=== PATIENT | female | born 1950 | race Caucasian/White ===

== ENCOUNTER → 2017-03-21 | Outpatient (CLI) | payer OTHER | LOC: CIMAGING 14:59 | PROVIDERS: ATTEND Family Medicine | DX: N95.0 Postmenopausal bleeding (principal) | CPT/HCPCS: 76856-PO ==

== ENCOUNTER → 2017-03-22 | Outpatient (CLI) | payer OTHER | LOC: FIMAGING 08:36 | PROVIDERS: ATTEND Family Medicine | DX: Z12.31 Encounter for screening mammogram for malignant neoplasm of breast (principal) | CPT/HCPCS: G0202 ==

== ENCOUNTER 2017-05-10 03:18 | Observation (INO) | payer OTHER ==
[2017-05-10] MEDS ORDERED: NS 1,000 ML IV ONE ×3 (03:23→06:41)
[2017-05-10] MEDS ORDERED: PROMETHAZINE HCL 25 MG/ML INJ IVP ONE (03:23)
--- NOTE | 2017-05-10 03:25 | EDPHY ---
H & P Time Seen by Provider: 05/10/17 03:22 HPI/ROS: Chief Complaint: Nausea vomiting HPI: 66-year-old woman with began having nausea and vomiting after dinner last night. She has had multiple episodes of vomiting since. Denies any pain. Not had any diarrhea or constipation. No fevers or chills. No chest pain or shortness of breath. She has not felt lightheaded. No dizziness. No vision or hearing changes. No hematemesis. No melena or hematochezia. No on else in the family is ill. Has otherwise been in her usual state of health ROS: 10 point Review of Systems is negative except as noted in the HPI. PMH: Osteoporosis, restless leg syndrome Social History: No smoking, occasional alcohol, no recreational drug use Family History: non-contributory Physical Exam: Gen: Awake, Alert, No Distress HEENT: Nose: no rhinorrhea Eyes: PERRLA, EOMI Mouth: Moist mucosa Neck: Supple, no JVD Chest: nontender, lungs clear to auscultation Heart: S1, S2 normal, no murmur Abd: Soft, non-tender, no guarding Back: no CVA tenderness, no midline tenderness Ext: no edema, non-tender Skin: no rash Neuro: CN II-XII intact, Sensation grossly intact, Strength 5/5 in bilateral upper and lower extremities - Medical/Surgical History Hx Asthma: Yes Hx Chronic Respiratory Disease: No Hx Diabetes: No Hx Cardiac Disease: No Hx Renal Disease: No Hx Cirrhosis: No Hx Alcoholism: No Hx HIV/AIDS: No Hx Splenectomy or Spleen Trauma: No - Social History Smoking Status: Former smoker Constitutional: Initial Vital Signs Temperature (C) 35 C L 05/10/17 03:20 Heart Rate 53 L 05/10/17 03:20 Respiratory Rate 18 05/10/17 03:20 Blood Pressure 218/96 H 05/10/17 03:20 O2 Sat (%) 97 05/10/17 03:20 O2 Delivery Mode Room Air Allergies/Adverse Reactions: erythromycin base [Erythromycin Base] Allergy (Severe, Verified 05/10/17 03:54) Vomiting Penicillins Allergy (Severe, Verified 05/10/17 03:54) Hives Sulfa (Sulfonamide Antibiotics) Allergy (Severe, Verified 05/10/17 03:54) Hives doxycycline Allergy (Verified 05/10/17 03:54) Hives Macrolide Antibiotics Allergy (Verified 05/10/17 03:54) Hives Home Medications: Medication Instructions Recorded Calcium/Magnesium/Vit D3 [Calcium 1 each PO BID 03/23/14 500 mg Tablet] Cholecalciferol (Vitamin D3) 2,000 unit PO BID 03/23/14 [Vitamin D3] Escitalopram Oxalate [Lexapro] 20 mg PO DAILY 03/23/14 Herbals/Supplements -Info Only 1 ea PO DAILY 03/23/14 Oxycodone Ir [Oxy Ir 5 mg (RX)] 5 - 10 mg PO Q3 PRN #40 tab 03/31/14 Carbidopa/Levodopa 05/10/17 Flexeril 05/10/17 Levothyroxine 05/10/17 Meloxicam 05/10/17 Valium 05/10/17 Medical Decision Making - Diagnostics EKG Interpretation: ECG time 1:42 p.m., sinus rhythm with a rate of 51, first-degree AV block, left axis deviation, LVH, no acute ST or T-wave changes. Imaging Results: CT head negative for acute abnormality per Dr Alarcon. Imaging: Discussed imaging studies w/ apartment maintenance supervisor Radiologist ED Course/Re-evaluation: Patient improved after IV antiemetics and fluids but still complaining of some mild abdominal discomfort and some persistent nausea patient has not had any further vomiting. CT scan of the brain is negative no acute change in her ECG. Troponin is negative. She has a mild leukocytosis of 16 but I think this is secondary to her multiple episodes of vomiting. Will give her small dose of fentanyl and is more ondansetron with IV hydration and reassess. Pt is improved after further hydration. Hypertension improved after clonidine. Pt has had no headache, chest pain or palpitations. Abdomen is soft and non- tender. Tolerating PO. Pt had another episode of vomiting. Feeling worse. Increasing nausea. Will need admission. Discussed with Dr. Thomason. Will admit to his service. - Data Points Laboratory Results: Laboratory Results 05/10/17 03:15 05/10/17 03:15 05/10/17 05/10/17 05/10/17 03:30 03:15 03:15 WBC 16.66 10^3/uL H 10^3/uL (3.80-9.50) RBC 5.53 10^6/uL H 10^6/uL (4.18-5.33) Hgb 16.4 g/dL H g/dL (12.6-16.3) Hct 48.2 % H % (38.0-47.0) MCV 87.2 fL fL (81.5-99.8) MCH 29.7 pg pg (27.9-34.1) MCHC 34.0 g/dL g/dL (32.4-36.7) RDW 13.7 % % (11.5-15.2) Plt Count 328 10^3/uL 10^3/uL (150-400) MPV 9.5 fL fL (8.7-11.7) Neut % (Auto) 81.5 % H % (39.3-74.2) Lymph % (Auto) 13.1 % L % (15.0-45.0) [place] % (Auto) 3.6 % L % (4.5-13.0) Eos % (Auto) 0.5 % L % (0.6-7.6) Baso % (Auto) 0.5 % % (0.3-1.7) Nucleat RBC Rel Count 0.0 % % (0.0-0.2) Absolute Neuts (auto) 13.55 10^3/uL H 10^3/uL (1.70-6.50) Absolute Lymphs (auto) 2.19 10^3/uL 10^3/uL (1.00-3.00) Absolute Monos (auto) 0.60 10^3/uL 10^3/uL (0.30-0.80) Absolute Eos (auto) 0.09 10^3/uL 10^3/uL (0.03-0.40) Absolute Basos (auto) 0.09 10^3/uL 10^3/uL (0.02-0.10) Absolute Nucleated RBC 0.00 10^3/uL 10^3/uL (0-0.01) Immature Gran % 0.8 % % (0.0-1.1) Immature Gran # 0.14 10^3/uL H 10^3/uL (0.00-0.10) Sodium 146 mEq/L H mEq/L (134-144) Potassium 4.2 mEq/L mEq/L (3.5-5.2) Chloride 106 mEq/L mEq/L (97-110) Carbon Dioxide 15 mEq/l L mEq/l (22-31) Anion Gap 25 mEq/L H mEq/L (8-16) BUN 19 mg/dL mg/dL (7-23) Creatinine 1.2 mg/dL H mg/dL (0.6-1.0) Estimated GFR 45 Glucose 151 mg/dL H mg/dL (70-100) Calcium 10.2 mg/dL mg/dL (8.5-10.4) Troponin I < 0.012 ng/mL ng/mL (0-0.034) Urine Color COLORLESS Urine Appearance CLEAR Urine pH 7.0 (5.0-7.5) Ur Specific [place] 1.008 (1.002-1.030) Urine Protein NEGATIVE (NEGATIVE) Urine Ketones 1+ H (NEGATIVE) Urine Blood 1+ H (NEGATIVE) Urine Nitrate NEGATIVE (NEGATIVE) Urine Bilirubin NEGATIVE (NEGATIVE) Urine Urobilinogen NEGATIVE EU EU (0.2-1.0) Ur Leukocyte Esterase NEGATIVE (NEGATIVE) Urine RBC 5-10 /hpf H /hpf (0-3) Urine WBC 1-3 /hpf /hpf (0-3) Ur Epithelial Cells TRACE /lpf /lpf (NONE-1+) Urine Bacteria TRACE /hpf H /hpf (NONE SEEN) Urine Glucose 1+ H (NEGATIVE) Medications Given: Discontinued Medications Clonidine (Catapres) 0.1 mg PO EDNOW ONE Stop: 05/10/17 05:09 Last Admin: 05/10/17 05:14 Dose: 0.1 mg Fentanyl (Sublimaze) 25 mcg IVP EDNOW ONE Stop: 05/10/17 04:35 Last Admin: 05/10/17 04:40 Dose: 25 mcg Fentanyl (Sublimaze) 25 mcg IVP EDNOW ONE Stop: 05/10/17 04:39 Last Admin: 05/10/17 04:39 Dose: Not Given Sodium Chloride (Ns) 1,000 mls @ 0 mls/hr IV ONCE ONE PRN Reason: Wide Open Stop: 05/10/17 03:24 Last Admin: 05/10/17 03:42 Dose: 1,000 mls Sodium Chloride (Ns) 1,000 mls @ 0 mls/hr IV ONCE ONE PRN Reason: Wide Open Stop: 05/10/17 04:11 Last Admin: 05/10/17 04:36 Dose: 1,000 mls Ondansetron HCl (Zofran) 4 mg IVP EDNOW ONE Stop: 05/10/17 04:35 Last Admin: 05/10/17 04:42 Dose: 4 mg Promethazine HCl (Phenergan) 12.5 mg IVP ONCE ONE Stop: 05/10/17 03:24 Last Admin: 05/10/17 03:43 Dose: 12.5 mg Departure - Departure Disposition: [facility] Acute Clinical Impression: Vomiting, Dehydration, Hypertension Condition: Fair
--- NOTE | 2017-05-10 03:43 | CPEKG ---
Heart Rate: 51 RR Interval: 1176 P-R Interval: 224 QRSD Interval: 100 QT Interval: 536 QTC Interval: 494 P [place]: 48 QRS [place]: -55 T Wave [place]: 50 EKG Severity - ABNORMAL ECG - EKG Impression: SINUS RHYTHM EKG Impression: ATRIAL PREMATURE COMPLEX EKG Impression: FIRST DEGREE AV BLOCK EKG Impression: LAD, CONSIDER LEFT ANTERIOR FASCICULAR BLOCK EKG Impression: LEFT VENTRICULAR HYPERTROPHY EKG Impression: BORDERLINE PROLONGED QT INTERVAL Electronically Signed By: Mal Colindres 10-May-2017 06:26:51
[2017-05-10 03:55] LABS: % IMMATURE GRANULYOCYTES 0.8 % (0.0-1.1); ABSOLUTE IMMATURE GRANULOCYTES 0.14 10^3/uL (0.00-0.10); ADD DIFF? NO; ADD MORPH? NO; ADD SCAN? NO; ATYPICAL LYMPHOCYTE FLAG 0 (0-99); FRAGMENT RBC FLAG 0 (0-99); HEMATOCRIT 48.2 % (38.0-47.0); HEMOGLOBIN 16.4 g/dL (12.6-16.3); LEFT SHIFT FLG 0 (0-99); LIPEMIA HEMOLYSIS FLAG 90 (0-99); MEAN CELL HEMOGLOBIN 29.7 pg (27.9-34.1); MEAN CELL VOLUME 87.2 fL (81.5-99.8); MEAN PLATELET VOLUME 9.5 fL (8.7-11.7); PLATELET CLUMPS FLAG 10 (0-99); PLATELET COUNT 328 10^3/uL (150-400); RED BLOOD CELL COUNT 5.53 10^6/uL (4.18-5.33); RED CELL DISTRIBUTION WIDTH 13.7 % (11.5-15.2)
[2017-05-10 04:00] LABS: ANION GAP 25 mEq/L (8-16); CALCIUM 10.2 mg/dL (8.5-10.4); CARBON DIOXIDE 15 mEq/l (22-31); CHLORIDE 106 mEq/L (97-110); CREATININE 1.2 mg/dL (0.6-1.0); GLOMERULAR FILTRATION RATE 45; GLUCOSE 151 mg/dL (70-100); POTASSIUM 4.2 mEq/L (3.5-5.2); SODIUM 146 mEq/L (134-144)
[2017-05-10 04:12] LABS: TROPONIN I < 0.012 ng/mL (0-0.034)
[2017-05-10 04:26] LABS: COLOR COLORLESS; LEUKOCYTE ESTERASE,URINE NEGATIVE (NEGATIVE); NITRITE,URINE NEGATIVE (NEGATIVE)
[2017-05-10 04:29] LABS: BACTERIA TRACE /hpf (NONE SEEN)
[2017-05-10] MEDS ORDERED: ONDANSETRON 4 MG/2 ML VIAL IVP ONE (04:34)
[2017-05-10] MEDS ORDERED: fentaNYL 100 MCG/2 ML INJ IVP ONE ×2 (04:34→04:38)
[2017-05-10] MEDS ORDERED: fentaNYL 100 MCG/2 ML INJ ONE (04:35)
[2017-05-10] MEDS ORDERED: ONDANSETRON 4MG PREPACK#2 BTL TAKEHOME ONE (05:51)
[2017-05-10] MEDS ORDERED: LORazepam 2 MG/ML INJ ONE (06:38)
[2017-05-10] MEDS ORDERED: LORazepam 2 MG/ML INJ IVP ONE (06:40)
[2017-05-10] MEDS ORDERED: ONDANSETRON 4 MG/2 ML VIAL IVP PRN (07:13)
[2017-05-10] MEDS ORDERED: ONDANSETRON DISINTEGRATING 4 MG TAB PO PRN (07:13)
[2017-05-10] MEDS ORDERED: oxyCODONE IR 5 MG TAB PO PRN ×2 (07:13→09:04)
[2017-05-10] MEDS ORDERED: PROMETHAZINE HCL 25 MG/ML INJ IVP PRN (07:13)
[2017-05-10] MEDS ORDERED: ACETAMINOPHEN 325 MG TAB PO PRN (07:13)
--- NOTE | 2017-05-10 07:53 | GHP ---
[f rep st] HISTORY AND PHYSICAL DATE OF ADMISSION: 05/10/2017 CHIEF COMPLAINT: Nausea, vomiting. HISTORY OF PRESENT ILLNESS: This is a 66-year-old female who began vomiting after dinner last night . She vomited about 4-6 times, which these were perfuse. They were red. However, she had eaten so mething red for dinner. She has some mild abdominal discomfort. No real pain. No diarrhea. Nobod y else is sick around her. She has not had any questionable meals. She has not been camping or angela nk any stream water recently. PAST MEDICAL/SURGICAL HISTORY: 1. Osteoporosis. 2. Restless legs syndrome. 3. Right-sided ANKUR. 4. Ankle surgery. MEDICATIONS: Please see medication reconciliation. ALLERGIES: Penicillin, sulfa, erythromycin, doxycycline, macrolides. FAMILY HISTORY: Mother of [place]. SOCIAL HISTORY: She drinks wine and she smokes marijuana. REVIEW OF SYSTEMS: A 10-point review of systems is conducted and is negative except per HPI. PHYSICAL EXAM: VITAL SIGNS: Blood pressure 178/84, heart rate 62, respiration rate 18, saturating 94% on room air. Temperature is 36.2. GENERAL: The patient is a pleasant female, resting comforta salvador, in no acute distress. HEENT: Shows to be normocephalic atraumatic. CARDIOVASCULAR: Regular rate and rhythm. No murmurs, rubs, or gallops. PULMONARY: Lungs are clear to auscultation bilater ally. ABDOMEN: Obese. However, she is soft, nontender, nondistended. SKIN: No rash. : No Fo logan. NEUROLOGIC: Shows her to be alert and oriented x3. She is moving all extremities. PSYCHIATR IC: Shows normal mood and affect. LABORATORY DATA: White count is 16.6, 81% neutrophils, hemoglobin is 16.4. Sodium 146, bicarb is 15 , creatinine is 1.2. Urinalysis shows 1+ blood, 5-10 red cells. DATA: 1. I discussed this with Dr. Colindres. Will admit to [facility] observation. 2. CT scan of the head shows nothing acute. 3. ECG, which I personally reviewed and interpreted, shows sinus rhythm. She has inverted T-waves in leads V1, V2. IMPRESSION AND PLAN: 66-year-old female with intractable nausea, vomiting. 1. Nausea, vomiting: Suspect this is gastroenteritis. We will treat her symptomatically. Provide d with IV fluids and antiemetics. Her abdominal exam is benign. I did not think she needs any dre tional imaging at this time. 2. Mild acute kidney injury: Prerenal. She will be hydrated. 3. Acidosis: This is likely due to her nausea, vomiting. Suspect that this will correct with hydr ation. 4. Mild hyponatremia: Again, this is due to her dehydration. 5. Leukocytosis: Likely stress reaction. 6. Questionable hematemesis: Given her risk for polycythemia, suspect that this is just due to wha t she ate. Would not work this up further unless she has more convincing hematemesis. 7. Uncontrolled hypertension: This was due to the stress of her current illness. This is improved . She did receive clonidine in the ED. We will follow this and consider additional antihypertensiv es. /[id number]/MODL
[2017-05-10] MEDS ORDERED: NON-FORMULARY NEW DRUG (Cyclobenzaprine Hcl [Flexeril] 5 MG) PO SCH (09:15)
[2017-05-10] MEDS ORDERED: Herbals/Supplements -Info Only PO SCH (09:30)
[2017-05-10] MEDS: NS 1,000 ML IV SCH ×2 (10:05→18:08)
[2017-05-10 14:09] LABS: % IMMATURE GRANULYOCYTES 0.6 % (0.0-1.1); ABSOLUTE IMMATURE GRANULOCYTES 0.08 10^3/uL (0.00-0.10); ADD DIFF? NO; ADD MORPH? NO; ADD SCAN? NO; ATYPICAL LYMPHOCYTE FLAG 0 (0-99); FRAGMENT RBC FLAG 0 (0-99); HEMATOCRIT 43.7 % (38.0-47.0); HEMOGLOBIN 14.6 g/dL (12.6-16.3); LEFT SHIFT FLG 0 (0-99); LIPEMIA HEMOLYSIS FLAG 80 (0-99); MEAN CELL HEMOGLOBIN 29.6 pg (27.9-34.1); MEAN CELL HEMOGLOBIN CONCENTR. 33.4 g/dL (32.4-36.7); MEAN CELL VOLUME 88.6 fL (81.5-99.8); PLATELET CLUMPS FLAG 10 (0-99); PLATELET COUNT 255 10^3/uL (150-400); RED BLOOD CELL COUNT 4.93 10^6/uL (4.18-5.33); RED CELL DISTRIBUTION WIDTH 13.8 % (11.5-15.2)
[2017-05-10 14:33] LABS: ALANINE AMINOTRANSFERASE 24 IU/L (9-52); ALBUMIN 3.9 g/dL (3.5-5.0); ALKALINE PHOSPHATASE 62 IU/L (38-126); ANION GAP 17 mEq/L (8-16); ASPARTATE AMINOTRANSFERASE 29 IU/L (14-46); BILIRUBIN,TOTAL 0.5 mg/dL (0.1-1.4); CALCIUM 8.5 mg/dL (8.5-10.4); CARBON DIOXIDE 18 mEq/l (22-31); CHLORIDE 109 mEq/L (97-110); CREATININE 1.2 mg/dL (0.6-1.0); GLOMERULAR FILTRATION RATE 45; GLUCOSE 156 mg/dL (70-100); POTASSIUM 4.4 mEq/L (3.5-5.2); SODIUM 144 mEq/L (134-144); TOTAL PROTEIN 7.2 g/dL (6.3-8.2)
[2017-05-10] MEDS: LEVOTHYROXINE 50 MCG TAB PO SCH (18:07)
--- NOTE | 2017-05-10 18:26 | HOSPPROG ---
Hospitalist Progress Note Assessment/Plan: prolonged service, in addition to the initial time spent during history and physical, direct patient care, [id number] with the patient at bedside for 33 minutes, from 3:40 until 4:13 p.m., addressing the following: - patient most likely presenting with acute viral gastroenteritis and she continues to experience some symptoms of nausea but is no longer vomiting - she has not had any subsequent bowel movements but physical exam does reveal hyperactive bowel sounds - repeat CBC demonstrates ongoing leukocytosis, ongoing metabolic acidosis, ongoing acute kidney injury - her oral intake has been minimal and she has yet to attempt a clear liquid diet - recommend continuing IV fluids given poor oral intake, advancing diet when hungry - given that she does not appear to have acute abdomen or focal tenderness on exam, not recommend abdominal imaging at this time - this patient's symptoms did not appear to be secondary to other medication related processes as she has continued on her home dosage of benzodiazepine nightly without any recent discontinuation and does not demonstrate any signs of withdrawal at this time - continue supportive care with antiemetics Objective: Vital Signs Temp Pulse Resp BP Pulse Ox 36.8 C 64 16 147/79 H 97 05/10/17 16:07 05/10/17 16:07 05/10/17 16:07 05/10/17 16:07 05/10/17 16:07 Laboratory Results 05/10/17 14:04 05/10/17 14:04 05/09/17 05/10/17 05/11/17 05:59 05:59 05:59 Intake Total 3650 Balance 3650 ICD10 Worksheet Patient Problems: Problems Problem Status Onset Osteoarthritis of right hip Acute Vomiting Acute Dehydration Acute Hypertension Acute
[2017-05-10] MEDS: CYCLOBENZAPRINE 10 MG TAB PO SCH (20:54)
[2017-05-10] MEDS ORDERED: ESCITALOPRAM OXALATE 10 MG TAB PO SCH (21:00)
[2017-05-10] MEDS ORDERED: NON-FORMULARY NEW DRUG (Escitalopram Oxalate [Lexapro] 20 MG) PO SCH (21:00)
[2017-05-10] MEDS ORDERED: CARBIDOPA/LEVODOPA 25 MG/100 MG TAB PO SCH (21:00)
[2017-05-10] MEDS ORDERED: DIAZEPAM 5 MG TAB PO SCH (21:00)
[2017-05-11 05:14] LABS: % IMMATURE GRANULYOCYTES 0.6 % (0.0-1.1); ABSOLUTE IMMATURE GRANULOCYTES 0.08 10^3/uL (0.00-0.10); ADD DIFF? NO; ADD MORPH? NO; ADD SCAN? NO; ATYPICAL LYMPHOCYTE FLAG 0 (0-99); FRAGMENT RBC FLAG 0 (0-99); HEMATOCRIT 40.7 % (38.0-47.0); HEMOGLOBIN 13.4 g/dL (12.6-16.3); LEFT SHIFT FLG 0 (0-99); LIPEMIA HEMOLYSIS FLAG 80 (0-99); MEAN CELL HEMOGLOBIN 29.8 pg (27.9-34.1); MEAN CELL HEMOGLOBIN CONCENTR. 32.9 g/dL (32.4-36.7); MEAN CELL VOLUME 90.4 fL (81.5-99.8); MEAN PLATELET VOLUME 8.9 fL (8.7-11.7); PLATELET CLUMPS FLAG 0 (0-99); PLATELET COUNT 225 10^3/uL (150-400)
[2017-05-11 05:39] LABS: ANION GAP 14 mEq/L (8-16); CALCIUM 8.3 mg/dL (8.5-10.4); CARBON DIOXIDE 22 mEq/l (22-31); CHLORIDE 110 mEq/L (97-110); CREATININE 1.4 mg/dL (0.6-1.0); GLOMERULAR FILTRATION RATE 38; GLUCOSE 96 mg/dL (70-100); POTASSIUM 4.3 mEq/L (3.5-5.2); SODIUM 146 mEq/L (134-144)
[2017-05-11] MEDS ORDERED: D5W 1/2 NS 1,000 ML IV SCH (08:15)
[2017-05-11] MEDS: LEVOTHYROXINE 50 MCG TAB PO SCH (09:29)
[2017-05-11] MEDS: CYCLOBENZAPRINE 10 MG TAB PO SCH (09:29)
[2017-05-11 11:12] VITALS: RESP 18
[2017-05-11 13:27] LABS: % IMMATURE GRANULYOCYTES 0.4 % (0.0-1.1); ABSOLUTE IMMATURE GRANULOCYTES 0.04 10^3/uL (0.00-0.10); ADD DIFF? NO; ADD MORPH? NO; ADD SCAN? NO; ATYPICAL LYMPHOCYTE FLAG 0 (0-99); FRAGMENT RBC FLAG 0 (0-99); HEMATOCRIT 39.5 % (38.0-47.0); HEMOGLOBIN 12.9 g/dL (12.6-16.3); LEFT SHIFT FLG 0 (0-99); LIPEMIA HEMOLYSIS FLAG 80 (0-99); MEAN CELL HEMOGLOBIN 29.5 pg (27.9-34.1); MEAN CELL HEMOGLOBIN CONCENTR. 32.7 g/dL (32.4-36.7); MEAN CELL VOLUME 90.4 fL (81.5-99.8); PLATELET CLUMPS FLAG 10 (0-99); PLATELET COUNT 225 10^3/uL (150-400); RED BLOOD CELL COUNT 4.37 10^6/uL (4.18-5.33)
[2017-05-11 14:51] LABS: PROCALCITONIN 0.06 ng/mL (0.02-0.10)
[2017-05-11 14:59] LABS: ANION GAP 11 mEq/L (8-16); CALCIUM 8.1 mg/dL (8.5-10.4); CARBON DIOXIDE 23 mEq/l (22-31); CHLORIDE 108 mEq/L (97-110); CREATININE 1.2 mg/dL (0.6-1.0); GLOMERULAR FILTRATION RATE 45; GLUCOSE 121 mg/dL (70-100); POTASSIUM 3.7 mEq/L (3.5-5.2); SODIUM 142 mEq/L (134-144)
--- NOTE | 2017-05-11 15:27 | PDDCSUM ---
Discharge Summary Discharge Summary: DISCHARGE SUMMARY FOLLOW-UP ITEMS: Follow-up creatinine BUN lytes hemoglobin A1c and CBC this week DATE OF ADMISSION: 05/10/2017 DATE OF DISCHARGE: 05/11/2017 DISCHARGE DIAGNOSES: 1. Suspected viral gastroenteritis 2. Continuous benzodiazepine dependence a 3. Restless leg syndrome 4. Acute kidney injury 5. Elevated blood pressure 6. Hyperglycemia CONSULTATIONS: None PROCEDURES / IMAGING: None CHIEF COMPLAINT: Nausea and vomiting SUBJECTIVE: Patient is feeling well at time discharge, tolerating liquid like diet PHYSICAL EXAM ON DISCHARGE: Systolic blood pressure 140, heart rate 60, afebrile overnight, satting well on room air, alert awake oriented x3, bowel sounds are hypoactive, abdomen is soft nontender nondistended LABS ON DISCHARGE: Serum sodium 142, potassium 3.7, creatinine 1.2, glucose 120, procalcitonin normal, white blood cell count 9800 HOSPITAL COURSE BY PROBLEM: 1. Suspected viral gastroenteritis. Symptoms including nausea vomiting with transient duration, self-limited, responded to supportive care, procalcitonin normal indicating no bacterial precipitant. She initially had a stress response with significant leukocytosis and white blood cell count of 16.7, down trended 9.8 after supportive care and control of symptoms. She should follow up with her primary care provider this week to ensure that she is not having any lingering symptoms. She has as needed Zofran ordered. 2. Acute kidney injury. Secondary to hypovolemia in the setting of nausea vomiting and poor oral intake. She received IV fluids and her serum creatinine level down trending from 1.4->1.2. She should have repeat creatinine BUN and lytes drawn as an outpatient this week. 3. Continuous benzodiazepine dependency. Patient is chronically on Valium for sleep, she has not had any recent interruptions in her dosing, she did not experience any evidence of benzodiazepine withdrawal during this hospitalization. 3. Restless leg syndrome. Patient has been continued on her carbidopa levodopa do not believe that this is causing her GI symptoms. 4. Elevated blood pressure. Patient had elevated systolic blood pressure of 100 /80 in the setting of significant GI distress, most likely a stress response but may have unmasked some undiagnosed underlying hypertension. Her systolic blood pressure was 100/40 at time of discharge and rather than initiating an antihypertensive at this time while she is attempting to slowly resume her diet , recommend that she have her blood pressure checked as an outpatient this week through primary care provider office. 5. Hyperglycemia. Acute, levels as high as 150, unclear if this is a stress response or evidence of early diabetes, hemoglobin A1c will be sent with this weeks labs. DISCHARGE MEDICATIONS: Please see official discharge medication reconciliation sheet in chart , Zofran as needed, hold meloxicam and monitor blood pressure as an outpatient. DISCHARGE INSTRUCTIONS: Follow up with primary care provider this week.
[2017-05-11 15:43] VITALS: BP 142/75; PULSE 59; TEMP 98.2; O2SAT 97
[2017-05-13] MEDS ORDERED: CHOLECALCIFEROL VIT D3 2,000 UNITS TAB/CAP PO SCH (08:00)
== END 2017-05-11 16:33 | disposition home or self-care (01) ==
LOC: EDUNIT# → F1N 08:28
PROVIDERS: ADMIT Student in an Organized Health Care Education/Training Program; ATTEND Internal Medicine
DX: K52.9 Noninfective gastroenteritis and colitis, unspecified (principal); R03.0 Elevated blood-pressure reading, without diagnosis of hypertension; R73.9 Hyperglycemia, unspecified; N17.9 Acute kidney failure, unspecified; G25.81 Restless legs syndrome; F11.20 Opioid dependence, uncomplicated; M81.0 Age-related osteoporosis without current pathological fracture; Z96.641 Presence of right artificial hip joint; F12.90 Cannabis use, unspecified, uncomplicated
CPT/HCPCS: 70450; 93005; G0378; J2060; J2405; J2550; J3010; 96374

== ENCOUNTER 2018-02-10 05:32 | Inpatient (IN) | payer OTHER, MEDICARE ==
--- NOTE | 2018-02-07 15:35 | GHP ---
[f rep st] PREOP HISTORY AND PHYSICAL DATE OF ADMISSION: 02/10/2018 ADMISSION DIAGNOSIS: Osteoarthritis, left hip. PLANNED PROCEDURE: Left total hip arthroplasty through an anterior approach. HISTORY OF PRESENT ILLNESS: The patient is a 67-year-old female with slowly worsening left hip pain. She has undergone a right total hip arthroplasty several years ago, done quite well with that. She has tried intra-articular injections into the hip. She is really compromised with functional abilit ies, now having difficulty getting up from a seated to standing position. She is no longer able to e xercise because of the pain and difficulty getting out of a car. The decision has been made to proce ed with a total hip arthroplasty. PRIOR MEDICAL HISTORY: Asthma, depression, high cholesterol, gout, hypertension, rheumatoid arthriti s, hypothyroidism. SURGICAL HISTORY: She is status post a right total hip arthroplasty in 2013. Left ankle tendon repa ir in 2009. Tubal ligation in 1985. MEDICATIONS: Levodopa, carbidopa, cyclobenzaprine, diazepam, levothyroxine, meloxicam. ALLERGIES: Macrolide antibiotics, penicillins, Requip, sulfa antibiotics. SOCIAL HISTORY: She is . Lives part of the year here in [place], part of the year in [facility]. Retired. Former smoker. Occasional alcohol use. REVIEW OF SYSTEMS: Negative for shortness of breath, chest pain. Otherwise, review of systems unrem arkable. PHYSICAL EXAM: GENERAL: Healthy-appearing 67-year-old female. VITAL SIGNS: She is 5 feet 9 inches tall, weighs 200 pounds. Blood pressure is 139/89, heart rate 60, respiratory rate is 14 on room ai r. NEUROLOGIC: She is alert and oriented x3. HEENT: Normocephalic, atraumatic. Extraocular muscl es are intact. NECK: Supple. There is no lymphadenopathy. No JVD. CHEST: Clear to auscultation. CARDIOVASCULAR: Regular rate and rhythm. ABDOMEN: Soft, nontender, nondistended. EXTREMITIES: Focused on left hip, leg lengths are equal. Range of motion is full extension, 100 degrees of flexio n, neutral internal rotation with groin pain, 20 degrees of external rotation, 20 degrees of abductio n. Motor strength, hip flexion, knee extension is 4+/5. 2+ dorsalis pedis, posterior tibial pulses. IMAGING: AP pelvis and frog-leg lateral are reviewed. They show moderate severe osteoarthritis of t he left hip. ASSESSMENT: Severe osteoarthritis, left hip. PLAN: I recommend proceeding with a total hip arthroplasty through an anterior approach. She has do ne quite well with the right hip. Risks and benefits including infection, blood clots, 1% to 2% disl ocation rate were all discussed. She understands these risks and wished to proceed. Her preoperativ e paperwork was completed. We will plan on surgery Saturday at [facility]. /[id number]/MODL
[~2018-02-10 05:32] MED LIST: VANCOMYCIN 1.5 GM in NS 250 ML IV ONE
[2018-02-10] MEDS ORDERED: LR 1,000 ML IV ONE (05:43)
[2018-02-10] MEDS ORDERED: VANCOMYCIN PHARMACY TO DOSE MISC ONE (06:00)
[2018-02-10] MEDS ORDERED: VANCOMYCIN 1.5 GM in NS 250 ML IV ONE (06:00)
[2018-02-10] MEDS ORDERED: MIDAZOLAM 2 MG/2 ML VIAL IVP ONE (06:41)
--- NOTE | 2018-02-10 06:44 | PDANEPAE ---
ANE History of Present Illness L ANKUR ANE Past Medical History - Cardiovascular History Hx Hypertension: No Hx Arrhythmias: Yes Hx Coronary Artery / Peripheral Vascular Disease: No Hx CHF / Valvular Disease: No Cardiovascular History Comment: arrythmia-2011 due to meds to help with ADHD - Resolved after med D/C'd - Pulmonary History Hx COPD: No Hx Asthma/Reactive Airway Disease: Yes Hx Recent Upper Respiratory Infection: No Hx Oxygen in Use at Home: No Hx Sleep Apnea: No Sleep Apnea Screening Result - Last Documented: Negative Pulmonary History Comment: asthma-inhalers as needed - Neurologic History Hx Cerebrovascular Accident: No Hx Seizures: No Hx Dementia: No Neurologic History Comment: poor balance- has had her whole life - Endocrine History Hx Diabetes: No Endocrine History Comment: hypothyroidism - Renal History Hx Renal Disorders: Yes Renal History Comment: hx of uti's. overactive bladder - Liver History Hx Hepatic Disorders: No - Neurological & Psychiatric Hx Hx Neurological and Psychiatric Disorders: Yes Neurological / Psychiatric History Comment: familial depression- controlled. ADHD - Cancer History Hx Cancer: No - Congenital Disorder History Hx Congenital Disorders: No - GI History Hx Gastrointestinal Disorders: Yes Gastrointestinal History Comment: hx of ulcers. Diverticulitis-diet controlled - has not bothered patient in a long, long time - Other Health History Other Health History: wears glasses. dental implant x1 - Chronic Pain History Chronic Pain: Yes (left hip) - Surgical History Prior Surgeries: 03/29/14 right total hip with [place]. 2009-L ankle repair. 1985-tubal ligation. 1956-tonsils ANE Review of Systems Review of systems is: negative Review of Systems: - Exercise capacity METS (RN): 4 METS ANE Patient History - Allergies Allergies/Adverse Reactions: doxycycline Allergy (Verified 01/20/18 14:32) Hives erythromycin base [Erythromycin Base] Allergy (Verified 01/20/18 14:32) Vomiting Macrolide Antibiotics Allergy (Verified 01/20/18 14:32) Hives Penicillins Allergy (Verified 01/20/18 14:32) Hives Sulfa (Sulfonamide Antibiotics) Allergy (Verified 01/20/18 14:32) Hives - Home Medications Home medications: home medication list seen and reviewed Home Medications: Escitalopram Oxalate [Lexapro] 20 mg PO HS 03/23/14 [Last Taken 02/08/18] Herbals/Supplements -Info Only 1 ea PO DAILY 03/23/14 [Last Taken 03/26/14] CYCLOBENZAPRINE HCL [Flexeril] 5 mg PO BID 05/10/17 [Last Taken 02/03/18] Carbidopa/Levodopa 25/100Mg [Sinemet 25/100 MG (*)] 1 tab PO HS 05/10/17 [Last Taken 02/03/18] Diazepam [Valium 5 MG (*)] 5 mg PO HS 05/10/17 [Last Taken 02/08/18] Levothyroxine [Synthroid 50 mcg (*)] 50 mcg PO DAILY06 05/10/17 [Last Taken ] Estradiol/Norethindrone Acet [Lopreeza 1 mg-0.5 mg Tablet] 1 each PO DAILY 01/20 [Last Taken 02/08/18] Meloxicam 15 mg PO DAILY 01/20/18 [Last Taken 02/03/18] Ferrous Sulfate [Ferrous Sulf 325 MG (*)] 325 mg PO DAILY 02/07/18 [Last Taken Unknown] Oxycodone Ir [Oxy Ir 5 mg (RX)] 5 mg PO DAILY PRN 02/07/18 [Last Taken 01/20/18] - NPO status NPO Since - Liquids (Date): 02/09/18 NPO Since - Liquids (Time): 22:00 NPO Since - Solids (Date): 02/09/18 NPO Since - Solids (Time): 18:00 - Smoking Hx Smoking Status: Former smoker - Family Anes Hx Family Hx Anesthesia Complications: none ANE Labs/Vital Signs - Vital Signs Blood Pressure: 150/79 Heart Rate: 70 Respiratory Rate: 16 O2 Sat (%): 92 Height: 175.26 cm Weight: 97.522 kg ANE Physical Exam - Airway Neck exam: FROM Mallampati Score: Class 1 Mouth exam: normal dental/mouth exam - Pulmonary Pulmonary: no respiratory distress - Cardiovascular Cardiovascular: regular rate and rhythym - ASA Status ASA Status: II ANE Anesthesia Plan Anesthesia Plan: spinal Total IV Anesthesia: Yes
--- NOTE | 2018-02-10 06:53 | PDHPUP ---
History & Physical Update H&P update statement: This history and physical update is based on an assessment of the patient which was completed after admission or registration (within 24 hours), but prior to the surgery/procedure. H&P update: H&P reviewed & patient examined, no change in patient's condition since H&P completed
[2018-02-10] MEDS ORDERED: THROMBIN (BOVINE) 5,000 UNIT VIAL TP ONE (06:58)
[2018-02-10] MEDS ORDERED: BUPIVACAINE/EPI 0.5% 30 ML SDV ONE (06:59)
[2018-02-10] MEDS ORDERED: CALCIUM CHLORIDE 1 GM/10 ML INJ ONE (07:00)
[2018-02-10] MEDS ORDERED: PROPOFOL/EMULSION 500 MG/50 ML BOTTLE IV ONE (07:06)
[2018-02-10] MEDS ORDERED: LIDOCAINE 2% 100 MG/5 ML SYR ONE (07:07)
[2018-02-10] MEDS ORDERED: PHENYLEPHRINE HCL 100 MCG/ML SYR ONE (07:41)
--- NOTE | 2018-02-10 07:51 | POSTANESTH ---
Post Anesthetic Evaluation Cardiovascular Status: Normal, Stable, Similar to Pre-Op Cond Respiratory Status: Normal, Stable, Similar to Pre-op Cond. Level of Consciousness/Mental Status: Can Participate in Eval, Mildly Sleepy, Arousable Pain Control: Adequate, Prn Tx Ordered Nausea/Vomiting Control: Adequate, Prn Tx Ordered Complications Possibly Related to Anesthesia: None Noted
[2018-02-10] MEDS ORDERED: MEPERIDINE 25 MG/ML SYR IVP PRN (07:52)
[2018-02-10] MEDS ORDERED: ACETAMINOPHEN 500 MG TAB PO PRN (07:52)
[2018-02-10] MEDS ORDERED: HYDROCODONE/APAP 5/325 TAB PO PRN (07:52)
[2018-02-10] MEDS ORDERED: ALBUTEROL 3 ML DEYVIAL IH PRN (07:52)
[2018-02-10] MEDS ORDERED: DEXAMETHASONE 4 MG/ML VIAL IVP PRN (07:52)
[2018-02-10] MEDS ORDERED: oxyCODONE IR 5 MG TAB PO PRN ×2 (07:52→09:16)
[2018-02-10] MEDS ORDERED: PROMETHAZINE HCL 25 MG/ML INJ IVP PRN (07:52)
[2018-02-10] MEDS ORDERED: NALOXONE HCL 0.4 MG/ML INJ IVP PRN (07:52)
[2018-02-10] MEDS ORDERED: HYDROmorphONE/DILAUDID 2 MG/ML INJ IVP PRN (07:52)
[2018-02-10] MEDS ORDERED: fentaNYL 100 MCG/2 ML INJ IVP PRN (07:52)
[2018-02-10] MEDS ORDERED: ONDANSETRON 4 MG/2 ML VIAL IVP PRN ×2 (07:52→10:48)
[2018-02-10] MEDS ORDERED: LACTULOSE 20 GM/30 ML UDCUP PO PRN (09:16)
[2018-02-10] MEDS ORDERED: diphenhydrAMINE 25 MG CAP PO PRN (09:16)
[2018-02-10] MEDS ORDERED: BISACODYL 10 MG SUPP PR PRN (09:16)
[2018-02-10] MEDS ORDERED: DIPHENOXYLATE/ATROPINE LOMOTIL 1 TAB PO PRN (09:16)
[2018-02-10] MEDS ORDERED: POLYETHYLENE GLYCOL 3350 17 GM PKT PO PRN (09:16)
[2018-02-10] MEDS ORDERED: PROMETHAZINE HCL 25 MG SUPPR PR PRN (09:16)
[2018-02-10] MEDS ORDERED: MAGNESIUM HYDROXIDE 30 ML UDCUP PO PRN (09:16)
[2018-02-10] MEDS ORDERED: TEMAZEPAM 15 MG CAP PO PRN (09:16)
--- NOTE | 2018-02-10 09:16 | POSTOPPROG ---
Post Op Note Date of Operation: 02/10/18 Surgeon: Randy Craney Advertising Sales Assistant: joan Greenwood Anesthesiologist: Neeta Anesthesia: Spinal Pre-op Diagnosis: OA LT hip Post-op Diagnosis: same Procedure: LT ANKUR via ant approach Findings: Severe OA LT hip Inf/Abcess present in the surg proc area at time of surgery?: No EBL: 100-500 Complications: none
[2018-02-10] MEDS ORDERED: LR 1,000 ML IV SCH (09:30)
--- NOTE | 2018-02-10 09:56 | GOP ---
[f rep st] OPERATIVE REPORT DATE OF OPERATION: 02/10/2018 SURGEON: Randy Carney MD SUPERVISOR WHIPPED TOPPING: Hernesto Greenwood, FURNITURE ASSOCIATE, [facility]. ANESTHESIA: Spinal with monitored anesthesia care. ANESTHESIOLOGIST: Dr. Mcconnell. PREOPERATIVE DIAGNOSIS: Osteoarthritis of the left hip. POSTOPERATIVE DIAGNOSIS: Osteoarthritis of the left hip. PROCEDURE PERFORMED: Left total hip arthroplasty through an anterior approach. FINDINGS: ESTIMATED BLOOD LOSS: 200 mL. INDICATIONS: Flores is a 67-year-old female with slowly worsening left hip pain. She has failed conservative management. Has impaired functional mobility with the hip and the decision was made to proceed with a total hip arthroplasty on the left. She has undergone a right total hip arthroplasty on the right through an anterior approach and has done well with that. DESCRIPTION OF PROCEDURE: After appropriate informed consent was obtained, patient was taken to the operating room and placed supine on the operating table. Time-out was performed. Patient was identified. Correct site was identified, matched with the radiographs available in the room. She received 2 g of Ancef preoperatively. Following a spinal anesthetic and monitored anesthesia care, patient was positioned on the operating room table with the right lower extremity placed in a well-padded well-leg traore. Left lower extremity placed in the ARCH table traction device. Left hip was prepped and draped in the usual sterile fashion. I made a standard anterior incision. Bleeding was controlled with electrocautery. I incised the fascia over the TFL and bluntly dissected the interval to find the circumflex femoral vessels. These were cauterized with the Aquamantys device. Then using a Rivers elevator, I elevated the soft tissues off the anterior aspect of the femoral head and neck. Placed a retractor on the inferior femoral neck, superior femoral neck. Incised the capsule and placed retractors within the capsule and then made a femoral neck cut using the oscillating saw. Using a corkscrew device, head and neck were removed, passed off the field. I then placed a retractor around the inferior aspect of the acetabulum, superior aspect of the acetabulum. She had extensive spurring and degenerative tearing of the labrum. This was removed with the rongeur. We then reamed starting at a size 49 and reamed up to a size 56 with good position of our trial. We then placed our final implant, tapped it in place, confirmed its position with AP fluoroscopic imaging. I tapped the poly liner in place. I then turned my attention to the femur. I externally rotated the femur to 90 degrees, removed remaining posterior capsule and femoral neck bone. We then extended the hip and adducted it 30 degrees, and using our femoral canal finding device, entered the femoral canal and then we broached up to a size 5 and trialed a +0 head. Reduced the hip by bringing the hip back out of adduction and extension. Stability was good. Leg lengths had been restored appropriately. We then removed the femoral stem, placed our final #5 femoral stem and trialed our +0 head again. Confirmed stability and leg length. Placed our final +0 ceramic head, tapped it in place. Reduced the hip a final time. Final imaging was obtained which again showed satisfactory positioning of the prosthesis as well as the leg lengths were equal. Wound was irrigated with pulsatile lavage. I closed the fascia overlying the TFL with 0 Vicryl. I placed 10 mL of PRP onto the cut bone surfaces and over the fascial repair. Superficial layer was closed with 2-0 Vicryl and the skin was closed with a Quill stitch 3-0 in a subcuticular fashion. I instilled 30 mL of 0.5% Marcaine with epinephrine around the incision site. Steri-Strips were applied. A sterile dressing was applied. Patient was awakened from anesthesia, taken to the recovery room in satisfactory condition. There were no immediate intraoperative complications. Ryan Greenwood's assistance was required throughout the entire case. IMPLANTS USED: A Raleigh Trident II acetabular shell size 56, 0 poly insert, an Accolade II 127-degree size 5 femoral stem with a +0, 36 mm Biolox ceramic head. COMPLICATIONS: None. DRAINS: None. /[id number]/MODL MTDD
[2018-02-10] MEDS: PROMETHAZINE HCL 25 MG/ML INJ IVP PRN ×3 (11:07→20:25)
[2018-02-10] MEDS: KETOROLAC 30 MG/1 ML SDV IVP PRN ×2 (11:54→20:06)
--- NOTE | 2018-02-10 13:00 | PDMN ---
Medical Necessity Medical necessity: [facility] IP only surgery; cpt 35786 L ANKUR
[2018-02-10] MEDS: ACETAMINOPHEN 325 MG TAB PO SCH ×2 (13:32→18:36)
[2018-02-10] MEDS: traMADol 50 MG TAB PO PRN (13:37)
[2018-02-10] MEDS: CYCLOBENZAPRINE 10 MG TAB PO PRN ×2 (14:54→20:31)
[2018-02-10] MEDS: DIAZEPAM 5 MG TAB PO PRN ×2 (14:54→20:31)
[2018-02-10] MEDS: CARBIDOPA/LEVODOPA 25 MG/100 MG TAB PO SCH ×2 (14:55→20:31)
[2018-02-10] MEDS ORDERED: VANCOMYCIN 1.25 GM in NS 250 ML IV ONE (19:30)
[2018-02-10] MEDS: ESCITALOPRAM OXALATE 10 MG TAB PO SCH (20:14)
[2018-02-10] MEDS: SENNOSIDES/DOCUSATE SODIUM TAB PO SCH (20:14)
[2018-02-10] MEDS: FAMOTIDINE 20 MG TAB PO SCH (20:14)
[2018-02-10] MEDS ORDERED: NON-FORMULARY NEW DRUG (Escitalopram Oxalate [Lexapro] 20 MG) PO SCH (21:00)
[2018-02-11] MEDS: ACETAMINOPHEN 325 MG TAB PO SCH ×5 (00:09→23:21)
[2018-02-11] MEDS: LEVOTHYROXINE 50 MCG TAB PO SCH (05:31)
[2018-02-11] MEDS: KETOROLAC 30 MG/1 ML SDV IVP PRN (05:31)
[2018-02-11] MEDS: CYCLOBENZAPRINE 10 MG TAB PO PRN (05:31)
[2018-02-11] MEDS: RIVAROXABAN 10 MG TAB PO SCH (08:28)
[2018-02-11] MEDS: FAMOTIDINE 20 MG TAB PO SCH ×2 (08:28→20:17)
[2018-02-11] MEDS: traMADol 50 MG TAB PO PRN ×2 (08:28→20:19)
[2018-02-11] MEDS: SENNOSIDES/DOCUSATE SODIUM TAB PO SCH ×2 (08:28→20:17)
[2018-02-11] MEDS: NORETHINDRONE ACET PO SCH (08:45)
[2018-02-11] MEDS: ESTRADIOL PO SCH (08:45)
[2018-02-11] MEDS: DIAZEPAM 5 MG TAB PO PRN (11:34)
--- NOTE | 2018-02-11 12:20 | ASMTCMCOM ---
CM Note CM Note Notes: Pt s/p ANKUR. PT rec outpatient, pt already has an OPPT facility. Anticipate pt will d/c when medically stable with support of family, no CM d/c needs identified. CM available for changes/needs. Date Signed: 02/11/2018 12:19 PM Electronically Signed By:ALEX Luque
--- NOTE | 2018-02-11 13:04 | SOAPPROG ---
SOAP Progress Note Assessment/Plan: Assessment: POD#1 LT ANKUR Plan: 02/11/18 13:03 PT/OT Xarelto x 21 days WBAT anticipate DC home Saturday Subjective: n/v improved francisco better controlled Objective: DRessing with small amount blod leg lengths equal calfsoft 5/5 df/pf Vital Signs Temp Pulse Resp BP Pulse Ox 37.7 C 86 16 125/77 H 95 02/11/18 08:00 02/11/18 08:00 02/11/18 08:00 02/11/18 08:00 02/11/18 08:00 Laboratory Results 02/11/18 04:04 02/10/18 11:50 02/10/18 02/11/18 02/12/18 05:59 05:59 05:59 Intake Total 3205 Output Total 900 200 Balance 2305 -200 ICD10 Worksheet Patient Problems: Problems Problem Status Onset Dehydration Acute Hypertension Acute Osteoarthritis of right hip Acute Vomiting Acute
[2018-02-11] MEDS: ESCITALOPRAM OXALATE 10 MG TAB PO SCH (20:17)
[2018-02-11] MEDS: CARBIDOPA/LEVODOPA 25 MG/100 MG TAB PO SCH (20:18)
[2018-02-12] MEDS: LEVOTHYROXINE 50 MCG TAB PO SCH (06:03)
[2018-02-12] MEDS: ACETAMINOPHEN 325 MG TAB PO SCH (06:03)
[2018-02-12] MEDS: traMADol 50 MG TAB PO PRN (06:11)
[2018-02-12 07:41] VITALS: BP 134/76
[2018-02-12] MEDS: RIVAROXABAN 10 MG TAB PO SCH (08:42)
[2018-02-12] MEDS: SENNOSIDES/DOCUSATE SODIUM TAB PO SCH (08:42)
[2018-02-12] MEDS: CYCLOBENZAPRINE 10 MG TAB PO PRN (08:42)
[2018-02-12] MEDS: FAMOTIDINE 20 MG TAB PO SCH (08:43)
[2018-02-12] MEDS ORDERED: HYDROCODONE/APAP 5/325 TAB PO PRN (09:14)
--- NOTE | 2018-02-12 09:17 | SOAPPROG ---
SOAP Progress Note Assessment/Plan: Assessment: POD#1 LT ANKUR Plan: 02/11/18 13:03 PT/OT Xarelto x 21 days WBAT anticipate DC home Saturday02/12/18 09:16 POD#2 LT ANKUR DC home norco prn opain xarelto x 21 days f/u [facility] 2 weeks Subjective: feeling good this am ready to go home Objective: dressing changed incision healing no drainage leg lengths equal calf soft 5/5 df/pf Vital Signs Temp Pulse Resp BP Pulse Ox 36.9 C 79 16 134/76 H 94 02/12/18 07:39 02/12/18 07:39 02/12/18 07:39 02/12/18 07:39 02/12/18 07:39 Laboratory Results 02/12/18 04:19 02/10/18 11:50 02/11/18 02/12/18 02/13/18 05:59 05:59 05:59 Intake Total 3205 1550 450 Output Total 900 1450 1000 Balance 2305 100 -550 ICD10 Worksheet Patient Problems: Problems Problem Status Onset Dehydration Acute Hypertension Acute Osteoarthritis of right hip Acute Vomiting Acute
[2018-02-12] MEDS: ESTRADIOL PO SCH (10:06)
[2018-02-12] MEDS: NORETHINDRONE ACET PO SCH (10:06)
== END 2018-02-12 12:00 | disposition home or self-care (01) | DRG 470 ==
LOC: F3N 05:32
PROVIDERS: ADMIT Orthopaedic Surgery; ATTEND Orthopaedic Surgery
PROC: 0SRB04Z Replacement of Left Hip Joint with Ceramic on Polyethylene Synthetic Substitute, Open Approach (ICD-10-PCS; principal; 2018-02-10 07:15)
DX: M16.12 Unilateral primary osteoarthritis, left hip (principal); J45.909 Unspecified asthma, uncomplicated; I10 Essential (primary) hypertension; E78.00 Pure hypercholesterolemia, unspecified; M10.9 Gout, unspecified; M06.9 Rheumatoid arthritis, unspecified; E03.9 Hypothyroidism, unspecified; Z96.641 Presence of right artificial hip joint
CPT/HCPCS: 97110-GP; 97116-GP; 97161-GP; 97165-GO; 97530-GP; 97535-GO; G8978-GP-CK; G8979-GP-CI; G8980-GP-CI; G8987-GO-CI; G8988-GO-CI; G8989-GO-CI; J1885; J2001; J2250; J2370; J2405; J2550; J2704; J3370

== ENCOUNTER → 2018-07-23 | Outpatient (CLI) | payer OTHER, MEDICARE | LOC: FIMAGING 14:34 | PROVIDERS: ATTEND Family Medicine | DX: Z12.31 Encounter for screening mammogram for malignant neoplasm of breast (principal) ==

== ENCOUNTER → 2018-07-25 | Outpatient (CLI) | payer OTHER, MEDICARE | LOC: FIMAGING 07:51 | PROVIDERS: ATTEND Family Medicine | DX: N60.01 Solitary cyst of right breast (principal) ==

== ENCOUNTER → 2019-01-27 | Outpatient (CLI) | payer OTHER, MEDICARE | LOC: FIMAGING 11:41 | PROVIDERS: ATTEND Orthopaedic Surgery | DX: S82.832A Other fracture of upper and lower end of left fibula, initial encounter for closed fracture (principal) ==

== ENCOUNTER 2019-01-28 10:13 | Day surgery (SDC) | payer OTHER, MEDICARE ==
--- NOTE | 2019-01-27 21:03 | GHP ---
[f rep st] PREOP HISTORY AND PHYSICAL DATE OF ADMISSION: 01/28/2019 DATE OF PLANNED PROCEDURE: 01/28/2019 ADMISSION DIAGNOSIS: Displaced distal fibular fracture, left ankle. PLANNED PROCEDURE: Open reduction, internal fixation, left fibular fracture. HISTORY OF PRESENT ILLNESS: The patient is a 68-year-old female who injured her ankle while visiting [place], [place] several days ago, sustained an ankle fracture dislocation. This was closed reduced in an emergency room there. She was placed in a posterior splint with a sugar-tong support, and she and her have returned here to [place]. She was evaluated in clinic. X -rays showed some loose fragments around the talus. We ordered a CT scan to be sure there was not a talar fracture, of which there is not. Decision has been made ti proceed with open reduction and internal fixation of a distal fibula fracture. PRIOR MEDICAL HISTORY: Arthritis, asthma, depression, high cholesterol, gout, heart murmur, hypertension, hypothyroidism. SURGICAL HISTORY: Total hip arthroplasty 2017 and 2013, ankle surgery 2009 on the left. MEDICATIONS: Advair Diskus, carbidopa/levodopa, diazepam, levothyroxine, meloxicam. ALLERGIES: Macrobid antibiotics, penicillins, Requip, sulfa. SOCIAL HISTORY: , lives both here in [place] as well as in [place] Former smoker. Occasional alcohol use. REVIEW OF SYSTEMS: No shortness of breath. No chest pain. Otherwise, review of systems unremarkable. PHYSICAL EXAM: A 68-year-old female. She is 5 feet 9 inches tall, weighs 200 pounds. VITAL SIGNS: Blood pressure is 121/78, heart rate 64, respiratory rate is 16 on room air. GENERAL: Alert and oriented x3. HEENT: Normocephalic , atraumatic. Extraocular muscles intact. NECK: Supple. There is no adenopathy. Lungs clear to auscultation. CARDIOVASCULAR: Regular rate and rhythm. ABDOMEN: Soft, nontender, nondistended. There is no splenomegaly. EXTREMITIES: She is in a splint that is fitting appropriately, moving her toes well. Brisk capillary refill to all her toes. Sensation to light touch is intact. X-RAYS: Pre and post-reduction films as well as a CT scan from today are reviewed. A displaced distal fibular fracture. Talar dome is intact without a talus fracture. ASSESSMENT: Displaced distal fibular fracture following ankle fracture dislocation. PLAN: We will proceed with an open reduction and internal fixation of the fibula. There is possibility of needing a syndesmotic screw. She understands that. Plan on surgery tomorrow at the hospital at noon. She will be n.p.o. after midnight. Preoperative paperwork was completed. /[id number]/MODL MTDD
[2019-01-28] MEDS ORDERED: BUPIVACAINE/EPI 0.5% 30 ML SDV ONE (10:35)
[2019-01-28] MEDS ORDERED: BACITRACIN 50,000 UNITS/10 ML SYR IRR ONE (10:35)
[2019-01-28] MEDS ORDERED: POLYMYXIN B SULFATE 500,000 UNIT/10 ML SYR IRR ONE (10:35)
[2019-01-28] MEDS ORDERED: LR 1,000 ML IV ONE (10:45)
[2019-01-28] MEDS ORDERED: LIDOCAINE 1% 2 ML INJ ID PRN (10:45)
[2019-01-28] MEDS ORDERED: ROPIVACAINE HCL 150 MG/30 ML INJ ONE (10:54)
[2019-01-28] MEDS ORDERED: PROPOFOL 200 MG/20 ML VIAL ONE (10:56)
[2019-01-28] MEDS ORDERED: MIDAZOLAM 2 MG/2 ML VIAL IVP ONE (11:36)
--- NOTE | 2019-01-28 11:37 | PDANEPAE ---
ANE History of Present Illness left ankle fracture ANE Past Medical History - Cardiovascular History Hx Hypertension: No Hx Arrhythmias: No Hx Chest Pain: No Hx Coronary Artery / Peripheral Vascular Disease: No Hx CHF / Valvular Disease: No Hx Palpitations: No Cardiovascular History Comment: arrythmia-2011 due to meds to help with ADHD - Resolved after med D/C'd - Pulmonary History Hx COPD: No Hx Asthma/Reactive Airway Disease: Yes Hx Recent Upper Respiratory Infection: No Hx Oxygen in Use at Home: No Hx Sleep Apnea: No Sleep Apnea Screening Result - Last Documented: Negative Pulmonary History Comment: asthma-[employer] inhalers as needed - Neurologic History Hx Cerebrovascular Accident: No Hx Seizures: No Hx Dementia: No Neurologic History Comment: poor balance- has had her whole life - Endocrine History Hx Diabetes: No Hypothyroid: Yes Hyperthyroid: No Obesity: mild Endocrine History Comment: hypothyroidism - Renal History Hx Renal Disorders: Yes Renal History Comment: hx of uti's. overactive bladder - Liver History Hx Hepatic Disorders: No - Neurological & Psychiatric Hx Hx Neurological and Psychiatric Disorders: Yes Neurological / Psychiatric History Comment: familial depression- controlled. ADHD - Cancer History Hx Cancer: No - Congenital Disorder History Hx Congenital Disorders: No - GI History Hx Gastrointestinal Disorders: Yes Gastrointestinal History Comment: hx of ulcers. Diverticulitis-diet controlled - has not bothered patient in a long, long time - Other Health History Other Health History: FELL 01/21/19 SUSTAINING FX OF LEFT ANKLE. wears glasses. dental implant x1 - Chronic Pain History Chronic Pain: No - Surgical History Prior Surgeries: LT TOTAL HIP 01/2018. 03/29/14 right total hip with [facility]. 2009-L ankle repair. 1985-tubal ligation. 1956-tonsils ANE Review of Systems Review of systems is: negative Review of Systems: - Exercise capacity Exercise capacity: >=4 METS METS (RN): 4 METS ANE Patient History - Allergies Allergies/Adverse Reactions: doxycycline Allergy (Verified 01/28/19 10:50) Hives erythromycin base [Erythromycin Base] Allergy (Verified 01/28/19 10:50) Vomiting Iodine and Iodide Containing Produc Allergy (Verified 01/28/19 11:09) Itching Macrolide Antibiotics Allergy (Verified 01/28/19 10:50) Hives Penicillins Allergy (Verified 01/28/19 10:50) Hives shellfish derived Allergy (Verified 01/28/19 11:09) Itching Sulfa (Sulfonamide Antibiotics) Allergy (Verified 01/28/19 10:50) Hives - Home Medications Home medications: home medication list seen and reviewed Home Medications: Herbals/Supplements -Info Only 1 ea PO DAILY 03/23/14 [Last Taken 01/21/19] CYCLOBENZAPRINE HCL [Flexeril] 5 mg PO HS 05/10/17 [Last Taken 01/27/19] Diazepam [Valium 5 MG (*)] 5 mg PO PRN 05/10/17 [Last Taken 01/14/19] Levothyroxine [Synthroid 50 mcg (*)] 50 mcg PO DAILY06 05/10/17 [Last Taken 08:00] Estradiol/Norethindrone Acet [Lopreeza 1 mg-0.5 mg Tablet] 1 each PO DAILY 01/20 [Last Taken 01/28/19 08:00] Albuterol Sulfate Hfa PRN 01/27/19 [Last Taken 12/31/18] Meloxicam HS 01/27/19 [Last Taken 01/26/19] - NPO status NPO Status: no food or drink >8 hours - Anes Hx Anes Hx: post operative nausea and vomiting - Smoking Hx Smoking Status: Former smoker - Family Anes Hx Family Hx Anesthesia Complications: none ANE Labs/Vital Signs - Vital Signs Height: 175.26 cm Weight: 90.718 kg ANE Physical Exam - Airway Neck exam: FROM Mallampati Score: Class 2 Mouth exam: normal dental/mouth exam - Pulmonary Pulmonary: no respiratory distress - Cardiovascular Cardiovascular: regular rate and rhythym - ASA Status ASA Status: II ANE Anesthesia Plan Anesthesia Plan: GA w LMA Regional Anesthesia: single shot NB, adductor canal FNB, popliteal SNB Total IV Anesthesia: Yes
[2019-01-28] MEDS ORDERED: PROPOFOL/EMULSION 500 MG/50 ML BOTTLE IV ONE ×2 (11:38→12:56)
[2019-01-28] MEDS ORDERED: fentaNYL 100 MCG/2 ML INJ ONE ×2 (12:00→13:02)
[2019-01-28] MEDS ORDERED: CLINDAMYCIN 900 MG/DEXTROSE/50 ML BAG IV ONE (12:27)
[2019-01-28] MEDS ORDERED: CLINDAMYCIN 900 MG/DEXTROSE 50 ML IV ONE (12:29)
[2019-01-28] MEDS ORDERED: ACETAMINOPHEN 500 MG TAB PO PRN (13:26)
[2019-01-28] MEDS ORDERED: MEPERIDINE 25 MG/0.5 ML AMP IVP PRN (13:26)
[2019-01-28] MEDS ORDERED: PHENYLEPHRINE HCL 100 MCG/ML SYR IVP PRN (13:26)
[2019-01-28] MEDS ORDERED: DIAZEPAM 5 MG/ML 1 ML SYR IVP PRN (13:26)
[2019-01-28] MEDS ORDERED: fentaNYL 100 MCG/2 ML INJ IVP PRN (13:26)
[2019-01-28] MEDS ORDERED: HYDROmorphONE/DILAUDID 1 MG/ML INJ IVP PRN (13:26)
[2019-01-28] MEDS ORDERED: ALBUTEROL 3 ML DEYVIAL IH PRN (13:26)
[2019-01-28] MEDS ORDERED: oxyCODONE IR 5 MG TAB PO PRN (13:26)
[2019-01-28] MEDS ORDERED: LR 500 ML IV PRN (13:26)
[2019-01-28] MEDS ORDERED: DEXAMETHASONE 4 MG/ML VIAL IVP PRN (13:26)
[2019-01-28] MEDS ORDERED: ONDANSETRON 4 MG/2 ML VIAL IVP PRN (13:26)
[2019-01-28] MEDS ORDERED: NALOXONE HCL 0.4 MG/ML INJ IVP PRN (13:26)
[2019-01-28] MEDS ORDERED: METOCLOPRAMIDE 10 MG/2 ML VIAL IVP PRN (13:26)
[2019-01-28] MEDS ORDERED: PROMETHAZINE HCL 25 MG/ML INJ IVP PRN (13:26)
[2019-01-28] MEDS ORDERED: LABETALOL HCL 5 MG/ML 20 ML MDV ONE ×2 (13:30→13:59)
--- NOTE | 2019-01-28 13:58 | POSTOPPROG ---
Post Op Note Date of Operation: 01/28/19 Surgeon: Randy Carney Anesthesia: GET(General Endotracheal) Pre-op Diagnosis: Displacedfibula fx Post-op Diagnosis: same Indication: displaced fx Procedure: ORIF fibula wit syndesmotic screw placemet Findings: medial clear space widening Inf/Abcess present in the surg proc area at time of surgery?: No EBL: Minimal Complications: none Bowel Protocol: No Clean Closure Performed: Yes
[2019-01-28] MEDS: LABETALOL HCL 5 MG/ML 20 ML MDV IVP PRN ×2 (14:00→14:27)
[2019-01-28] MEDS ORDERED: HYDROmorphONE/DILAUDID 1 MG/ML INJ ONE (14:09)
[2019-01-28] MEDS ORDERED: hydrALAZINE 20 MG/ML VIAL ONE (14:37)
[2019-01-28] MEDS: hydrALAZINE 20 MG/ML VIAL IVP PRN ×2 (14:42→14:55)
--- NOTE | 2019-01-28 14:54 | POSTANESTH ---
Post Anesthetic Evaluation Cardiovascular Status: Normal, Stable, Tx Hyper/Hypo-tension (pt hypertensive in pre-op. advised to f/u with pcp for possible bp meds) Respiratory Status: Normal, Stable Level of Consciousness/Mental Status: Can Participate in Eval Pain Control: Adequate, Prn Tx Ordered Nausea/Vomiting Control: Adequate, Prn Tx Ordered Complications Possibly Related to Anesthesia: None Noted
[2019-01-28] MEDS ORDERED: oxyCODONE IR 5 MG TAB ONE (15:09)
--- NOTE | 2019-01-28 16:16 | GOP ---
[f rep st] OPERATIVE REPORT DATE OF OPERATION: 01/28/2019 SURGEON: Randy Carney MD ANESTHESIA: Popliteal block with general. ANESTHESIOLOGIST: Dr. Caballero PREOPERATIVE DIAGNOSIS: Displaced distal fibula fracture. POSTOPERATIVE DIAGNOSIS: Displaced distal fibula fracture. PROCEDURE PERFORMED: Open reduction, internal fixation distal fibula fracture with syndesmotic screw placement. FINDINGS: INDICATIONS: The patient is a 68-year-old female who was visiting in [place] who had a slip and fall, sustained a dislocated displaced fibula fracture. This was closed reduced in the emergency room there, splinted. She then returned home to [place] and was evaluated in my office. Decision was mad e to proceed with an open reduction, internal fixation of the fibula. There was some question of poss ible talar injury. We did get a preoperative CT scan, which was negative for that, and we decided to proceed with an open reduction, internal fixation of the fibula fracture. DESCRIPTION OF PROCEDURE: After appropriate informed consent was obtained, the patient was taken to the operating room. Dr. Caballero had placed a popliteal block in the preoperative. The patient then u nderwent general endotracheal tube anesthesia, was positioned on the operating table with all bony pr ominences well padded. Left lower extremity was prepped and draped in usual sterile fashion, exsangui nated the limb, inflated tourniquet to 250 mmHg. She has small fracture blister just posterior to the fibula and I was careful to place the incision j ust anterior to that. Soft tissues were carefully dissected. Fracture was identified. Hematoma was cl eaned out and irrigated with water. I was then able to gently traction the ankle and reduce the fract ure, held in place with a bone-holding clamp. We then placed a lag screw from anterior superior to po sterior inferior, securely fixing the fracture fragment back. We then gently contoured a 6-hole 1/3 t ubular plate held in place with a series of cortical screws. I then stressed the ankle mortise, which did show medial clear space widening. Then, using a large tenaculum clamp, I was able to reduce the mortise and I placed 1 syndesmotic screw, the fibula into the tibia, securely fixing back the mortise . Wound was irrigated a final time. Deep layers were closed with 2-0 Vicryl. Skin was closed with inter rupted 3-0 Monocryl stitches. I instilled an additional 10 mL of 0.5% Marcaine plain around the incis ion. A sterile dressing and a posterior splint with the foot in neutral dorsiflexion were applied. Th e patient was awakened from anesthesia, taken to recovery room in satisfactory condition. There were no immediate intraoperative complications. COMPLICATIONS: None. DRAINS: None. TOTAL TOURNIQUET TIME: 58 minutes at 250 mmHg IMPLANTS USED: A Synthes 10/16 tubular plate. /[id number]/MODL
[2019-01-28 16:35] VITALS: BP 145/77
== END 2019-01-28 16:20 | disposition home or self-care (01) ==
LOC: FSGY 10:13
PROVIDERS: ATTEND Orthopaedic Surgery
PROC: 0SSG04Z Reposition Left Ankle Joint with Internal Fixation Device, Open Approach (ICD-10-PCS; principal; 2019-01-28 11:45)
DX: S82.832A Other fracture of upper and lower end of left fibula, initial encounter for closed fracture (principal); W19.XXXA Unspecified fall, initial encounter; F32.9 Major depressive disorder, single episode, unspecified; J45.909 Unspecified asthma, uncomplicated; I10 Essential (primary) hypertension; E78.5 Hyperlipidemia, unspecified; M10.9 Gout, unspecified; E03.9 Hypothyroidism, unspecified
CPT/HCPCS: C1713; J0360; J1170; J2250; J2704; J2795; J3010

== ENCOUNTER → 2019-02-13 | Outpatient (CLI) | payer OTHER, MEDICARE | LOC: FIMAGING 11:49 | PROVIDERS: ATTEND Family Medicine | DX: N63.10 Unspecified lump in the right breast, unspecified quadrant (principal) ==